=== PATIENT | female | born 2000 | race Caucasian/White ===

== ENCOUNTER 2023-03-11 01:16 | Emergency (ER) | payer OTHER ==
[~2023-03-11] VITALS: Ht 157.5 cm; Wt 92.1 kg
[2023-03-11 01:18] VITALS: BP 139/83; TEMP 97.8; O2SAT 100
== END 2023-03-11 04:48 | disposition home or self-care (01) ==
LOC: M ED 01:16
DX: M79.604 Pain in right leg (principal)

== ENCOUNTER → 2023-06-19 | Outpatient (CLI) | payer OTHER ==
[~2023-06-19] MED LIST: MULTTAB20 PO
== END ==
LOC: M RAD 16:57
PROVIDERS: ATTEND Obstetrics & Gynecology
DX: Z34.02 Encounter for supervision of normal first pregnancy, second trimester (principal); M79.661 Pain in right lower leg

== ENCOUNTER 2023-09-23 16:20 | Outpatient (CLI) | payer OTHER ==
[~2023-09-23] VITALS: Ht 157.5 cm; Wt 107.9 kg
[~2023-09-23 16:20] MED LIST changes: -ASPI81CH33 PO; -NOXI1TAB PO
[2023-09-23] MEDS ORDERED: NOXI1TAB PO (16:39)
[2023-09-23] MEDS ORDERED: ASPI81CH33 PO (16:39)
[2023-09-23] MEDS ORDERED: HOME MED LIST COMPLETE! XX SCH (16:40)
[2023-09-23 16:41] VITALS: BP 114/53
[2023-09-23 18:07] VITALS: BP 124/64
[2023-09-23 19:02] VITALS: BP 132/71
== END 2023-09-23 20:44 | disposition home or self-care (01) ==
LOC: M LDO 16:20
PROVIDERS: ATTEND Obstetrics & Gynecology
DX: O26.893 Other specified pregnancy related conditions, third trimester (principal); N89.8 Other specified noninflammatory disorders of vagina; Z3A.29 29 weeks gestation of pregnancy
CPT/HCPCS: 59025; 76815; G0463

== ENCOUNTER → 2023-09-23 | Outpatient (REF) ==
[~2023-09-23] MED LIST changes: +ASPI81CH33 PO; +NOXI1TAB PO
== END ==
LOC: M LAB REF 14:51
PROVIDERS: ATTEND Obstetrics & Gynecology Obstetrics
DX: Z34.82 Encounter for supervision of other normal pregnancy, second trimester (principal)

== ENCOUNTER 2024-04-19 20:56 | Emergency (ER) | payer OTHER ==
[~2024-04-19] VITALS: Ht 157.5 cm; Wt 106.8 kg
[~2024-04-19 20:56] MED LIST changes: +ACET-683 PO; +ASPI81CH33 PO; +CALC500C15 PO; +COLA100C5 PO; +IBUP-1022 PO; +NOXI1TAB PO; +OXYC-517 PO
[2024-04-19 21:01] VITALS: BP 136/83; TEMP 97.1; O2SAT 99
== END 2024-04-20 03:45 | disposition home or self-care (01) ==
LOC: M ED 20:56
DX: R51.9 Headache, unspecified (principal); Z88.2 Allergy status to sulfonamides; Z79.1 Long term (current) use of non-steroidal anti-inflammatories (NSAID); Z79.810 Long term (current) use of selective estrogen receptor modulators (SERMs); Z79.899 Other long term (current) drug therapy